=== PATIENT | male | born 1955 | race Caucasian/White ===

== ENCOUNTER 2021-10-13 10:04 | Inpatient (IN) | payer OTHER ==
[~2021-10-13] VITALS: Ht 170.1 cm; Wt 56.0 kg
[2021-10-13] MEDS ORDERED: PROAIR HFA8.5 GM INH (10:32)
[2021-10-13] MEDS ORDERED: TOPROL XL25 MG PO (10:32)
[2021-10-13] MEDS ORDERED: MIRTAZAPINE45 M1 PO (10:33)
[2021-10-13] MEDS ORDERED: Ipratropium Brom3 ML INH (10:33)
[2021-10-13] MEDS ORDERED: PROTONIX40 MG PO (10:34)
[2021-10-13] MEDS ORDERED: PRINIVIL20 M1 PO (10:34)
[2021-10-13] MEDS ORDERED: POTASSIUM CHLO20 ME4 PO (10:35)
[2021-10-13] MEDS ORDERED: OCEAN104 ML NAS (10:36)
[2021-10-13] MEDS ORDERED: NATURE'S BLEND F1 MG PO (10:36)
[2021-10-13] MEDS ORDERED: PROBIOTIC1 EAC1 PO (10:37)
[2021-10-13] MEDS ORDERED: TRULANCE PO (10:37)
[2021-10-13] MEDS ORDERED: SYMB160 INH (10:38)
[2021-10-13] MEDS ORDERED: STIOLTO RESPIMAT4 GM INH (10:39)
[2021-10-13 10:50] VITALS: BP 141/112
[2021-10-13 11:19] LABS: BASO % 0.4 % (0.0-1.0); EOS % 0.6 % (1.0-4.0); HEMATOCRIT 36.6 % (42.0-52.0); LYMPH # 1.2 10*3/uL (1.3-4.4); LYMPH % 24.6 % (27.0-41.0); MEAN CELL VOLUME 83.9 fl (80.0-94.0); MEAN CORPUSCULAR HGB 27.1 pg (27.0-31.0); MEAN CORPUSCULAR HGB CONC 32.2 g/dl (33.0-37.0); MEAN PLATELET VOLUME 10.3 fl (9.6-12.3); MONO # 0.6 10*3/uL (0.1-1.0); MONO % 13.4 % (3.0-9.0); NEUT # 2.9 10*3/uL (2.3-7.9); NEUT % 60.6 % (47.0-73.0); PLATELET COUNT AUTOMATED 292 10*3/uL (130-400); RED BLOOD COUNT 4.36 10*6/uL (4.50-5.90); RED CELL DISTRI WIDTH 17.5 % (0-14.5); WHITE BLOOD COUNT 4.7 10*3/uL (4.8-10.8)
[2021-10-13 13:27] LABS: ALKALINE PHOSPHATASE 74 U/L (45-117); BUN 7 mg/dl (7-24); CHLORIDE 96 mmol/L (98-107); CREATININE 0.71 mg/dL (0.70-1.30); POTASSIUM 4.5 mmol/L (3.5-5.1); SGOT/AST 108 IU/L (3-35); SGPT/ALT 139 U/L (12-78); SODIUM 132 mmol/L (136-145); TOTAL PROTEIN 6.9 gm/dL (6.4-8.2)
[2021-10-13 13:29] LABS: FREE T4 1.33 ng/dl (0.76-1.46)
[2021-10-13 14:41] VITALS: BP 122/81
[2021-10-13 16:00] VITALS: BP 131/75
[2021-10-13 16:59] LABS: BILIRUBIN Negative (Negative); BLOOD Negative (Negative); CLARITY Cloudy (Clear); COLOR Dark Yellow (Yellow); GLUCOSE Negative (Negative); KETONE Trace (Negative); LEUKO ESTERASE Trace (Negative); NITRITE Negative (Negative); SPECIFIC GRAVITY 1.015 (1.001-1.030)
[2021-10-13 17:08] LABS: URINE AMPHETAMINES < 1000 (1000ng/ml); URINE BARBITURATES > 200 (200ng/ml); URINE BENZODIAZEPINES < 200 (200ng/ml); URINE CANNABINOIDS (THC) < 50 (50ng/ml); URINE COCAINE < 300 (300ng/ml); URINE METHADONE < 300 (300ng/ml); URINE OPIATES < 300 (300ng/ml)
[2021-10-13 17:33] LABS: BACTERIA TRACE; RBC 0-2 rbc/hpf (0-2)
[2021-10-13 17:36] LABS: URINE PHENCYCLIDINE < 25 (25ng/ml)
[2021-10-13 20:00] VITALS: BP 120/68
[2021-10-14] VITALS: BP 120/72
[2021-10-14 08:00] VITALS: BP 115/76
[2021-10-14 12:00] VITALS: BP 110/76
[2021-10-14 16:00] VITALS: BP 111/69; BP 92/64
[2021-10-14 20:00] VITALS: BP 119/69
[2021-10-15 08:00] VITALS: BP 128/74
== END 2021-10-15 12:38 | disposition home or self-care (01) | DRG 897 ==
LOC: 4E 10:04
PROVIDERS: Internal Medicine; ADMIT Emergency Medicine; ATTEND Emergency Medicine
DX: F10.230 Alcohol dependence with withdrawal, uncomplicated (principal); J44.9 Chronic obstructive pulmonary disease, unspecified; I10 Essential (primary) hypertension; F17.210 Nicotine dependence, cigarettes, uncomplicated; D72.819 Decreased white blood cell count, unspecified; D64.9 Anemia, unspecified; Z90.49 Acquired absence of other specified parts of digestive tract; Z88.8 Allergy status to other drugs, medicaments and biological substances; Z79.51 Long term (current) use of inhaled steroids; Z79.899 Other long term (current) drug therapy

== ENCOUNTER 2021-11-22 14:07 | Inpatient (IN) | payer OTHER ==
[~2021-11-22] VITALS: Ht 170.1 cm; Wt 60.4 kg
[~2021-11-22 14:07] MED LIST: Ipratropium Brom3 ML INH; MIRTAZAPINE45 M1 PO; NATURE'S BLEND F1 MG PO; OCEAN104 ML NAS; POTASSIUM CHLO20 ME4 PO; PRINIVIL20 M1 PO; PROAIR HFA8.5 GM INH; PROBIOTIC1 EAC1 PO; PROTONIX40 MG PO; STIOLTO RESPIMAT4 GM INH; SYMB160 INH; TOPROL XL25 MG PO; TRULANCE PO
[2021-11-22 14:11] VITALS: BP 136/89
[2021-11-22 14:32] LABS: HEMATOCRIT 32.8 % (42.0-52.0); MEAN CELL VOLUME 85.6 fl (80.0-94.0); MEAN CORPUSCULAR HGB 27.2 pg (27.0-31.0); MEAN CORPUSCULAR HGB CONC 31.7 g/dl (33.0-37.0); MEAN PLATELET VOLUME 9.8 fl (9.6-12.3); PLATELET COUNT AUTOMATED 273 10*3/uL (130-400); RED BLOOD COUNT 3.83 10*6/uL (4.50-5.90); RED CELL DISTRI WIDTH 18.8 % (0-14.5); WHITE BLOOD COUNT 5.9 10*3/uL (4.8-10.8)
[2021-11-22 14:33] LABS: MANUAL DIFF REFLEX YES
[2021-11-22 14:47] LABS: ALKALINE PHOSPHATASE 79 U/L (45-117); BUN 7 mg/dl (7-24); CHLORIDE 105 mmol/L (98-107); CREATININE 0.67 mg/dL (0.70-1.30); SGOT/AST 60 IU/L (3-35); SGPT/ALT 70 U/L (12-78); SODIUM 137 mmol/L (136-145); TOTAL PROTEIN 6.4 gm/dL (6.4-8.2)
[2021-11-22 14:58] LABS: ATYPICAL LYMPHS 2 % (0-0); PLATELET SUFFICIENCY NORMAL (NORMAL); POLYCHROMASIA SLIGHT; TOTAL CELLS COUNTED 100 #CELLS
[2021-11-22 14:59] LABS: BURR CELLS FEW
[2021-11-22 15:55] LABS: BILIRUBIN Negative (Negative); BLOOD Negative (Negative); CLARITY Clear (Clear); COLOR Yellow (Yellow); GLUCOSE Negative (Negative); KETONE Negative (Negative); LEUKO ESTERASE Negative (Negative); NITRITE Negative (Negative); PH 6.5 (4.5-8.0); SPECIFIC GRAVITY <= 1.005 (1.001-1.030); UROBILINOGEN 0.2 E.U./dl (0.0-1.0)
[2021-11-22 16:04] LABS: URINE AMPHETAMINES < 1000 (1000ng/ml); URINE BARBITURATES < 200 (200ng/ml); URINE BENZODIAZEPINES < 200 (200ng/ml); URINE CANNABINOIDS (THC) < 50 (50ng/ml); URINE COCAINE < 300 (300ng/ml); URINE METHADONE < 300 (300ng/ml); URINE OPIATES < 300 (300ng/ml)
[2021-11-22 16:09] LABS: EPITHELIAL CELLS 0-2; WBC 0-2 wbc/hpf (0-5)
[2021-11-22 16:11] LABS: URINE PHENCYCLIDINE < 25 (25ng/ml)
[2021-11-22 16:45] VITALS: BP 132/73
[2021-11-22 20:00] VITALS: BP 167/82
[2021-11-23] VITALS: BP 145/67
[2021-11-23 07:39] VITALS: BP 149/121
[2021-11-23 11:50] VITALS: BP 134/55
[2021-11-23 16:00] VITALS: BP 143/85
[2021-11-23 20:00] VITALS: BP 149/83
[2021-11-24] VITALS: BP 138/80
[2021-11-24 08:00] VITALS: BP 148/78
[2021-11-24] MEDS ORDERED: PREDNISONE10 MG PO (10:28)
[2021-11-24] MEDS ORDERED: DOXYCYCLINE MO100 MG PO (10:28)
[2021-11-24] MEDS ORDERED: VITAMIN B-1100 M1 PO (10:28)
[2021-11-24] MEDS ORDERED: ONDANSETRON HYDR4 M1 PO (10:28)
[2021-11-24] MEDS ORDERED: ATARAX,VISTARIL50 MG PO (10:28)
== END 2021-11-24 10:57 | disposition home or self-care (01) | DRG 897 ==
LOC: ED 14:07 → EDHOLD 14:49 → 5E 14:49 → EDHOLD 15:27 → 5E 16:11
PROVIDERS: Student in an Organized Health Care Education/Training Program; ADMIT Internal Medicine; ATTEND Internal Medicine
DX: F10.239 Alcohol dependence with withdrawal, unspecified (principal); J44.1 Chronic obstructive pulmonary disease with (acute) exacerbation; F41.9 Anxiety disorder, unspecified; I10 Essential (primary) hypertension; F17.210 Nicotine dependence, cigarettes, uncomplicated; F32.A Depression, unspecified; Z79.51 Long term (current) use of inhaled steroids; Z79.899 Other long term (current) drug therapy; Z90.49 Acquired absence of other specified parts of digestive tract

== ENCOUNTER 2021-12-27 11:10 | Inpatient (IN) | payer OTHER ==
[~2021-12-27] VITALS: Ht 170.1 cm; Wt 58.2 kg
[~2021-12-27 11:10] MED LIST changes: +ATARAX,VISTARIL50 MG PO; +DOXYCYCLINE MO100 MG PO; +ONDANSETRON HYDR4 M1 PO; +PREDNISONE10 MG PO; +VITAMIN B-1100 M1 PO
[2021-12-27 11:21] VITALS: BP 105/72
[2021-12-27 12:00] VITALS: BP 133/57
[2021-12-27 12:31] LABS: BASO % 0.1 % (0.0-1.0); EOS # 0.1 10*3/uL (0.0-0.4); HEMATOCRIT 32.4 % (42.0-52.0); LYMPH # 1.4 10*3/uL (1.3-4.4); MEAN CELL VOLUME 83.5 fl (80.0-94.0); MEAN CORPUSCULAR HGB 28.1 pg (27.0-31.0); MEAN CORPUSCULAR HGB CONC 33.6 g/dl (33.0-37.0); MEAN PLATELET VOLUME 8.8 fl (9.6-12.3); MONO % 11.4 % (3.0-9.0); NEUT # 6.3 10*3/uL (2.3-7.9); NEUT % 70.2 % (47.0-73.0); PLATELET COUNT AUTOMATED 270 10*3/uL (130-400); RED BLOOD COUNT 3.88 10*6/uL (4.50-5.90); RED CELL DISTRI WIDTH 18.1 % (0-14.5)
[2021-12-27 12:41] LABS: ACT PARTIAL THROMBO TIME 31.3 SECONDS (20.0-32.1)
[2021-12-27 12:51] LABS: ALKALINE PHOSPHATASE 71 U/L (45-117); BUN 10 mg/dl (7-24); CHLORIDE 97 mmol/L (98-107); CREATININE 0.57 mg/dL (0.70-1.30); LIPASE 172 U/L (73-393); SGOT/AST 91 IU/L (3-35); SGPT/ALT 101 U/L (12-78); SODIUM 125 mmol/L (136-145); TOTAL PROTEIN 6.3 gm/dL (6.4-8.2)
[2021-12-27 14:08] LABS: BILIRUBIN Negative (Negative); BLOOD Negative (Negative); CLARITY Clear (Clear); COLOR Yellow (Yellow); GLUCOSE Negative (Negative); KETONE Negative (Negative); LEUKO ESTERASE Negative (Negative); NITRITE Negative (Negative); PH 6.5 (4.5-8.0); SPECIFIC GRAVITY <= 1.005 (1.001-1.030); UROBILINOGEN 0.2 E.U./dl (0.0-1.0)
[2021-12-27 14:22] LABS: URINE AMPHETAMINES < 1000 (1000ng/ml); URINE BENZODIAZEPINES < 200 (200ng/ml); URINE CANNABINOIDS (THC) < 50 (50ng/ml); URINE COCAINE > 300 (300ng/ml); URINE METHADONE < 300 (300ng/ml); URINE OPIATES < 300 (300ng/ml)
[2021-12-27 14:23] LABS: URINE PHENCYCLIDINE < 25 (25ng/ml)
[2021-12-27 14:26] LABS: URINE BARBITURATES < 200 (200ng/ml)
[2021-12-27 14:28] LABS: BACTERIA TRACE; EPITHELIAL CELLS 0-2; MUCOUS 1+; WBC 0-2 wbc/hpf (0-5)
[2021-12-27 14:45] VITALS: BP 126/60
[2021-12-27 15:58] VITALS: BP 100/56
[2021-12-27] MEDS ORDERED: DAILY VALUE1 EACH PO (17:34)
[2021-12-27 18:37] VITALS: BP 106/58
[2021-12-27 20:00] VITALS: BP 133/57
[2021-12-28] VITALS: BP 137/71
[2021-12-28] MEDS ORDERED: BUSPAR5 MG PO (03:28)
[2021-12-28] MEDS ORDERED: GABAPENTIN800 MG PO (03:29)
[2021-12-28 08:00] VITALS: BP 121/97
[2021-12-28 08:05] LABS: HEMATOCRIT 33.4 % (42.0-52.0); MEAN CELL VOLUME 83.7 fl (80.0-94.0); MEAN CORPUSCULAR HGB 27.6 pg (27.0-31.0); MEAN CORPUSCULAR HGB CONC 32.9 g/dl (33.0-37.0); MEAN PLATELET VOLUME 9.7 fl (9.6-12.3); PLATELET COUNT AUTOMATED 244 10*3/uL (130-400); RED BLOOD COUNT 3.99 10*6/uL (4.50-5.90); RED CELL DISTRI WIDTH 18.2 % (0-14.5); WHITE BLOOD COUNT 15.9 10*3/uL (4.8-10.8)
[2021-12-28 08:13] LABS: MANUAL DIFF REFLEX YES
[2021-12-28 08:25] LABS: ALKALINE PHOSPHATASE 67 U/L (45-117); BUN 13 mg/dl (7-24); CHLORIDE 104 mmol/L (98-107); CREATININE 0.58 mg/dL (0.70-1.30); POTASSIUM 3.9 mmol/L (3.5-5.1); SGOT/AST 54 IU/L (3-35); SGPT/ALT 78 U/L (12-78); SODIUM 133 mmol/L (136-145); TOTAL PROTEIN 6.1 gm/dL (6.4-8.2)
[2021-12-28 08:53] LABS: OVALOCYTES FEW; PLATELET SUFFICIENCY NORMAL (NORMAL); TOTAL CELLS COUNTED 100 #CELLS
[2021-12-28 12:00] VITALS: BP 117/54
[2021-12-28 16:00] VITALS: BP 101/50
[2021-12-28 20:00] VITALS: BP 134/78
[2021-12-29] VITALS: BP 90/42; BP 92/50; BP 92/52
[2021-12-29 04:00] VITALS: BP 143/59
[2021-12-29 06:50] LABS: HEMATOCRIT 34.2 % (42.0-52.0); MEAN CORPUSCULAR HGB 27.7 pg (27.0-31.0); MEAN CORPUSCULAR HGB CONC 31.6 g/dl (33.0-37.0); MEAN PLATELET VOLUME 10.1 fl (9.6-12.3); PLATELET COUNT AUTOMATED 209 10*3/uL (130-400); WHITE BLOOD COUNT 23.4 10*3/uL (4.8-10.8)
[2021-12-29 06:51] LABS: MANUAL DIFF REFLEX YES
[2021-12-29 06:52] LABS: MEAN CELL VOLUME 87.7 fl (80.0-94.0)
[2021-12-29 07:13] LABS: OVALOCYTES FEW; PLATELET SUFFICIENCY NORMAL (NORMAL); POLYCHROMASIA SLIGHT; TOTAL CELLS COUNTED 100 #CELLS; TOXIC GRANULATION SLIGHT; VACUOLATION OF NEUTROPHILS SLIGHT
[2021-12-29 08:00] VITALS: BP 83/56
[2021-12-29 12:00] VITALS: BP 93/46
[2021-12-29 16:00] VITALS: BP 92/65
[2021-12-29 20:00] VITALS: BP 105/56
[2021-12-30 05:53] LABS: ALKALINE PHOSPHATASE 50 U/L (45-117); BUN 11 mg/dl (7-24); CHLORIDE 107 mmol/L (98-107); CREATININE 0.54 mg/dL (0.70-1.30); POTASSIUM 4.6 mmol/L (3.5-5.1); SGOT/AST 21 IU/L (3-35); SGPT/ALT 44 U/L (12-78); SODIUM 136 mmol/L (136-145); TOTAL PROTEIN 5.5 gm/dL (6.4-8.2)
[2021-12-30 06:00] VITALS: BP 135/48
[2021-12-30 06:10] LABS: BASO % 0.1 % (0.0-1.0); EOS # 0.1 10*3/uL (0.0-0.4); EOS % 0.7 % (1.0-4.0); HEMATOCRIT 31.3 % (42.0-52.0); LYMPH # 1.6 10*3/uL (1.3-4.4); LYMPH % 11.6 % (27.0-41.0); MEAN CELL VOLUME 89.7 fl (80.0-94.0); MEAN CORPUSCULAR HGB 27.5 pg (27.0-31.0); MEAN CORPUSCULAR HGB CONC 30.7 g/dl (33.0-37.0); MEAN PLATELET VOLUME 10.6 fl (9.6-12.3); MONO % 7.3 % (3.0-9.0); NEUT # 11.1 10*3/uL (2.3-7.9); NEUT % 79.3 % (47.0-73.0); PLATELET COUNT AUTOMATED 169 10*3/uL (130-400); RED BLOOD COUNT 3.49 10*6/uL (4.50-5.90); RED CELL DISTRI WIDTH 19.2 % (0-14.5); WHITE BLOOD COUNT 14.1 10*3/uL (4.8-10.8)
[2021-12-30 08:00] VITALS: BP 111/47
[2021-12-30] MEDS ORDERED: XARELTO20 M1 PO (11:46)
[2021-12-30 12:00] VITALS: BP 149/92
== END 2021-12-30 13:37 | disposition home or self-care (01) | DRG 896 ==
LOC: ED 11:10 → EDHOLD 11:58 → 5E 11:58
PROVIDERS: Emergency Medicine; Internal Medicine; Registered Nurse; ADMIT Internal Medicine; ATTEND Internal Medicine
DX: F10.239 Alcohol dependence with withdrawal, unspecified (principal); J96.20 Acute and chronic respiratory failure, unspecified whether with hypoxia or hypercapnia; E87.1 Hypo-osmolality and hyponatremia; J44.9 Chronic obstructive pulmonary disease, unspecified; I10 Essential (primary) hypertension; K21.9 Gastro-esophageal reflux disease without esophagitis; F17.210 Nicotine dependence, cigarettes, uncomplicated; R74.01 Elevation of levels of liver transaminase levels; F41.9 Anxiety disorder, unspecified; I48.91 Unspecified atrial fibrillation; D64.9 Anemia, unspecified; Z90.49 Acquired absence of other specified parts of digestive tract; Z93.3 Colostomy status